=== PATIENT | male | born 1945 | race Caucasian/White ===

== ENCOUNTER → 2019-01-17 | Outpatient (CLI) | payer MEDICARE ==
--- NOTE | 2019-01-17 23:38 | CONS ---
CONSULTATION DATE OF SERVICE: 01/17/2019 This patient is a 73-year-old gentleman who has been evaluated in the sleep center for obstructive sleep apnea-hypopnea syndrome. HISTORY OF PRESENT ILLNESS/SLEEP-WAKE EVALUATION: The patient was diagnosed with obstructive sleep apnea in [facility] about 12 years ago. Since that time he has been on treatment with CPAP. This CPAP unit he received 5 years ago. He continues to use CPAP equipment every night. No snoring with the machine. I checked his CPAP unit. Usage is 17/30 nights for more than 4 hours. The machine is on automatic regimen with a minimum pressure of 4 and maximum pressure 20. The machine does not show me apnea-hypopnea index or average pressure. Patient's usual sleep schedule is from 11:30 p.m. until 8 a.m. No problem with falling asleep. No TV in bedroom. He usually sleeps on the side position. He wakes up from sleep up to 3 times with nocturia. His weight increased by about 20 pounds over the last 5 years. No history of hypnagogic hallucinations, sleep paralysis or cataplexy. [place] Sleepiness Scale is 8. PAST MEDICAL HISTORY: 1. Colon cancer, status post surgical treatment, chemotherapy and radiation therapy. 2. Right knee arthritis. 3. Right hip arthritis. 4. Beginning of macular degeneration. MEDICATIONS: [id number] on vitamins and supplements. SOCIAL HISTORY: Negative for smoking. Alcohol consumption occasional. FAMILY HISTORY: Heart problems, sleep apnea, snoring, cancer. REVIEW OF SYSTEMS: Occasional sleepiness. Patient takes a nap in the afternoon. PHYSICAL EXAMINATION: GENERAL: A pleasant gentleman without distress. VITAL SIGNS: BP 122/77, HR 86, RR 16, height 5 feet 6 inches, weight 184 pounds. Body mass index 29.6, temperature 97.9, oxygen saturation at room air 98%. HEENT: PERRLA, EOMI. Evaluation of oropharynx showed tongue protrudes midline. Low position of soft palate. Mallampati IV. NECK: Supple. No JVD. Thyroid is not palpable. LUNGS: Clear to percussion and to auscultation. Good air exchange. No wheezing or rhonchi. HEART: S1, S2 regular. No murmurs, gallops or rubs. ABDOMEN: Obese. EXTREMITIES: No clubbing or cyanosis. HOME CARE MUSIC THERAPIST: Awake, alert, and oriented X3. Cranial nerves 2 to 7 intact. There is no fasciculation or atrophy. noted. No focal deficits observed. IMPRESSION: 1. Obstructive sleep apnea-hypopnea syndrome for 12 years. Patient continues to use CPAP equipment every night for the whole night. His CPAP unit is 5 years old and does not have information about apnea-hypopnea index and average pressure. The patient machine is in automatic regimen. The patient has 3 episodes of awakenings from sleep at night. He takes naps sometimes during the middle of the day. 2. History of colon cancer, status post surgical treatment, radiation therapy and chemotherapy. 3. History of right knee arthritis. 4. History of right hip arthritis. 5. Beginning of macular degeneration. PLAN: 1. Prescription to replace CPAP unit with a new one. Patient's unit is more than 5 years old and does not have information about apnea-hypopnea index. 2. Sleep hygiene with regular time in bed for 8 hours. 3. No driving if feeling any sleepiness. 4. Losing weight. 5. I will see the patient for follow-up visit after he gets his new machine to evaluate his clinical response to treatment and compliance with treatment and to make any necessary adjustments. Thank you very much for allowing me to participate in the management of your patient. Sincerely, Bora Mcnulty MD, PhD, FAASM Diplomat of [employer] [employer] [employer] [facility] [place] RAISA / GABRIEL: [id number] /
== END | disposition home or self-care (01) ==
LOC: SLEEP 14:10
PROVIDERS: ATTEND Internal Medicine
DX: G47.33 Obstructive sleep apnea (adult) (pediatric) (principal); M17.11 Unilateral primary osteoarthritis, right knee; M16.11 Unilateral primary osteoarthritis, right hip; H35.30 Unspecified macular degeneration; Z85.038 Personal history of other malignant neoplasm of large intestine; Z99.89 Dependence on other enabling machines and devices
CPT/HCPCS: 99211

== ENCOUNTER → 2019-05-23 | Outpatient (CLI) | payer MEDICARE ==
--- NOTE | 2019-05-23 14:35 | SFUN ---
SLEEP CENTER FOLLOW UP NOTE DATE OF SERVICE: 05/23/2019 A 73-year-old gentleman who has been followed in the Sleep Center for treatment of obstructive sleep apnea-hypopnea syndrome. Recently patient had CPAP titration and then he received new CPAP unit. He is able to use CPAP equipment every night for the whole night without significant problems. No snoring with the machine. [place] Sleepiness Scale is 8. During the last month, the patient developed some hives on the body but not on the face. MEDICATIONS: Vitamins and supplements. PHYSICAL EXAM: Patient in no distress, BP 105/60, HR 86, RR 16, weight 180, temperature 98.4, oxygen saturation at room air 97%. OROPHARYNX: Low position of soft palate. Neck Supple, no JVD. Thyroid is not palpable. LUNGS Clear to percussion and to auscultation. Good air exchange. No wheezing or rhonchi. HEART S1, S2 regular. No murmurs, gallops, or rubs. ABDOMEN Soft and nontender. Bowel sounds are present. No organomegaly appreciated. EXTREMITIES No clubbing or cyanosis. SENIOR SSIS DEVELOPER Awake, alert, and oriented X3. Cranial nerves 2 to 7 intact. There is no fasciculation or atrophy. noted. No focal deficits observed. A few hives on the on the left hip area. I checked CPAP unit, range of the pressure 5-13, average pressure is 10.2, usage 30/30 nights for more than 4 hours, average 6.9 hours. Leak 24 L/minute which is borderline, apnea-hypopnea index 4.3, which is normal range. IMPRESSION 1: 1. Obstructive sleep apnea-hypopnea syndrome. The patient demonstrated 100% compliance with treatment, benefitting from treatment. 2. History of colon CA, status post surgical treatment, radiation therapy and chemotherapy. 3. History of right knee arthritis. 4. History of right hip arthritis. 5. History of beginning of macular degeneration. 6. Recent early hives on the skin. PLAN: 1. Patient should continue to use CPAP equipment every night for the whole night, following also cleaning recommendations and using distilled water for humidifier and let everything dry in the morning after he is finished using the machine. 2. Prescription for all necessary CPAP supplies will be maintained. 3. Watching weight. 4. Sleep hygiene with regular time in bed for at least 8 hours. 5. No driving if feeling sleepiness. Thank you very much for allowing me to participate in the management of your patient. Sincerely, Bora Mcnulty MD, PhD, FAASM Diplomat of [place] [employer] [employer] [facility] [place] RAISA / GABRIEL: [id number] /
== END ==
LOC: SLEEP 13:18
PROVIDERS: ATTEND Internal Medicine
DX: G47.33 Obstructive sleep apnea (adult) (pediatric) (principal); M13.861 Other specified arthritis, right knee; M13.851 Other specified arthritis, right hip; H35.30 Unspecified macular degeneration; L50.9 Urticaria, unspecified; Z85.038 Personal history of other malignant neoplasm of large intestine; Z98.890 Other specified postprocedural states; Z92.21 Personal history of antineoplastic chemotherapy; Z92.3 Personal history of irradiation; Z99.89 Dependence on other enabling machines and devices; Z79.899 Other long term (current) drug therapy